=== PATIENT | male | born 1950 | race Caucasian/White ===

== ENCOUNTER → 2021-11-05 13:04 | Outpatient (BNVA) | payer MEDICARE, SELFPAY | PROVIDERS: Family Provider Family Medicine; PCP Family Medicine; Visit Provider Urology | DX: R39.9 Unspecified symptoms and signs involving the genitourinary system (principal) | CPT/HCPCS: 81003 ==

== ENCOUNTER → 2022-06-16 11:24 | Outpatient (BNVA) | payer MEDICARE, SELFPAY | PROVIDERS: Family Provider Family Medicine; PCP Family Medicine; Visit Provider Family Medicine | DX: F41.1 Generalized anxiety disorder (principal); N52.9 Male erectile dysfunction, unspecified; F41.0 Panic disorder [episodic paroxysmal anxiety]; R39.9 Unspecified symptoms and signs involving the genitourinary system; Z76.89 Persons encountering health services in other specified circumstances; Z12.5 Encounter for screening for malignant neoplasm of prostate; J01.90 Acute sinusitis, unspecified; B96.89 Other specified bacterial agents as the cause of diseases classified elsewhere; H61.891 Other specified disorders of right external ear; I10 Essential (primary) hypertension | CPT/HCPCS: 80053; 80061; 84153; 84443; 85025 ==

== ENCOUNTER → 2022-08-03 15:29 | Outpatient (BNVA) | payer MEDICARE, SELFPAY | PROVIDERS: Family Provider Family Medicine; PCP Family Medicine; Visit Provider Otolaryngology | DX: H61.813 Exostosis of external canal, bilateral (principal) | CPT/HCPCS: 99203 ==

== ENCOUNTER → 2023-01-31 13:19 | Outpatient (BNVA) | payer MEDICARE, SELFPAY | PROVIDERS: Family Provider Family Medicine; PCP Family Medicine; Visit Provider Otolaryngology | DX: H61.813 Exostosis of external canal, bilateral (principal) | CPT/HCPCS: 99213 ==

== ENCOUNTER → 2023-05-24 09:33 | Outpatient (BNVA) | payer MEDICARE, SELFPAY | PROVIDERS: Family Provider Family Medicine; PCP Family Medicine; Visit Provider Family Medicine | DX: Z12.5 Encounter for screening for malignant neoplasm of prostate (principal); E78.2 Mixed hyperlipidemia; Z00.00 Encounter for general adult medical examination without abnormal findings; N52.9 Male erectile dysfunction, unspecified | CPT/HCPCS: 80053; 80061; 85027; G0103 ==

== ENCOUNTER → 2023-12-06 09:43 | Outpatient (BNVA) | payer MEDICARE, SELFPAY | PROVIDERS: Family Provider Family Medicine; PCP Family Medicine; Visit Provider Otolaryngology | DX: H69.93 Unspecified Eustachian tube disorder, bilateral (principal); H93.13 Tinnitus, bilateral; H61.813 Exostosis of external canal, bilateral | CPT/HCPCS: 99213 ==

== ENCOUNTER → 2024-11-22 14:40 | Outpatient (BNVA) | payer MEDICARE, SELFPAY | PROVIDERS: Family Provider Family Medicine; PCP Family Medicine; Visit Provider Family Medicine | DX: I10 Essential (primary) hypertension (principal); E78.2 Mixed hyperlipidemia; Z12.5 Encounter for screening for malignant neoplasm of prostate; F41.1 Generalized anxiety disorder; F41.0 Panic disorder [episodic paroxysmal anxiety]; R79.89 Other specified abnormal findings of blood chemistry; H66.91 Otitis media, unspecified, right ear; N52.9 Male erectile dysfunction, unspecified; E55.9 Vitamin D deficiency, unspecified | CPT/HCPCS: 80053; 80061; 82306; 82607; 83036; 83735; 84439; 84443; 85025; G0103 ==

== ENCOUNTER 2025-01-28 07:56 | Outpatient (CLI) | payer MEDICARE, SELFPAY ==
--- NOTE | 2025-01-28 08:02 | CT_ITS ---
WS: [id number] CT HEAD TECHNIQUE: Noncontrast and contrast-enhanced CT of the head. CLINICAL INFORMATION: TINNITUS COMPARISON: None. DLP: 2495.[address] scans at [facility] use at least one of these dose optimization techniques: automated exposure control; mA and/or kV adjustment per patient size (includes targeted exams where dose is matched to clinical indication); or iterative reconstruction. FINDINGS: No evidence of intracranial hemorrhage or mass effect. Mild small vessel changes with mild parenchymal volume loss worse in the frontal lobes. Vascular calcification. No abnormal intracranial enhancement. Mild mucosal thickening in the ethmoid air cells with mild sinusitis. Mucosal thickening in the RIGHT greater than LEFT mastoid air cells with sclerosis. Vascular calcification. CT/CT head wo/w con [id number] IMPRESSION: 1. No evidence of intracranial hemorrhage or mass effect. 2. No abnormal intracranial enhancement. 3. Mild small vessel changes with mild parenchymal volume loss worst in the fr ontal lobes. 4. Mild mucosal thickening ethmoid air cells with mild sinusitis 5. Chronic appearing mucosal thickening in the mastoid air cells RIGHT greater than LEFT with mild chronic sclerosis.
[2025-01-28] MEDS: iohexol 350 mg/mL 500 mL Btl (per mL) IV (08:17)
== END 2025-01-28 07:57 | disposition home or self-care (01) ==
LOC: RAD 07:58
PROVIDERS: PCP Family Medicine; Visit Provider Specialist
DX: H70.13 Chronic mastoiditis, bilateral (principal); H93.19 Tinnitus, unspecified ear; J32.2 Chronic ethmoidal sinusitis
CPT/HCPCS: 70470

== ENCOUNTER 2025-02-06 08:38 | Outpatient (CLI) | payer MEDICARE, SELFPAY ==
[2025-02-06 11:05] LABS: Vitamin B12 326 pg/mL (232-1245)
== END 2025-02-06 08:39 | disposition home or self-care (01) ==
PROVIDERS: PCP Family Medicine; Visit Provider Family Medicine
DX: E55.9 Vitamin D deficiency, unspecified (principal); R41.3 Other amnesia; Z82.0 Family history of epilepsy and other diseases of the nervous system; R79.89 Other specified abnormal findings of blood chemistry
CPT/HCPCS: 36415; 82306; 82542; 82607; 83520; 83921